=== PATIENT | female | born 1980 | race Caucasian/White ===

== ENCOUNTER 2016-03-21 07:33 | Emergency (ER) | payer OTHER ==
[~2016-03-21] VITALS: Ht 167.6 cm; Wt 68.9 kg
[~2016-03-21 07:33] MED LIST: AMOXIL 875 MG875 MG PO; CITALOPRAM HBR20 MG PO; CITALOPRAM HYDR40 MG PO; DIFLUCAN150 MG PO; FIORICET 325 MG1 TAB PO; FIORICET 50-301 EACH PO; MULTIVITAMIN1 TAB PO; NORCO 325 MG-51 TAB PO; PANTOPRAZOLE SO40 MG PO; PERCOCET 325 MG1 TA2 PO; PERCOCET 5-3251 EACH PO; PREDNISONE 20MG20 MG PO; PROTONIX 40MG T40 MG PO; REGLAN10 MG PO; TRAZODONE50 MG PO; ZOFRAN ODT4 M1 SL; ZOFRAN4 M1 SL; ZYRTEC10 MG PO
--- NOTE | 2016-03-21 07:48 | ED HEADACHE COMPLAINT ---
History of Present Illness General Chief Complaint: Headache Stated Complaint: HEADACHE, Source: patient, old records Exam Limitations: no limitations Vital Signs & Intake/Output Vital Signs & Intake/Output Vital Signs Date Time Temp Pulse Resp B/P Pulse O2 O2 Flow FiO2 Ox Delivery Rate 03/21 0911 72 15 124/76 99 Room Air Room Air 03/21 0806 Room Air Room Air 03/21 0737 97.0 96 20 118/80 97 Room Air Allergies Coded Allergies: NO KNOWN ALLERGIES (09/29/14) Reconcile Medications Acetaminophen/Butalbital/Caf (Fioricet 325 MG-50 MG-40 MG) 1 TAB TAB 1 TAB PO PRN MIGRAINES (Reported) do not exceed 6 tablet(s) in 24 hours Butalb/Acetaminophen/Caffeine (Fioricet 50-300-40 MG Capsule) 1 EACH CAPSULE 1 TAB PO Q4H PRN HEADACHE Cetirizine Hydrochloride (Zyrtec) 10 MG TAB 1 TAB PO PRN ALLERGIES (Reported) Citalopram Hydrobromide (Citalopram HBr) 20 MG TABLET 1 TAB PO DAILY MENTAL HEALTH (Reported) Ondansetron (Zofran Odt) 4 MG TAB.RAPDIS 1 TAB SL TID PRN nausea Oxycodone HCl/Acetaminophen (Percocet 5-325 MG Tablet) 1 EACH TABLET 1 TAB PO 4 TIMES/DAY PRN pain Pantoprazole Sodium (Protonix) 40 MG TAB 1 TAB PO PRN GI (Reported) Triage Note: PT C/O H/A X 2 DAYS. STATES SHE HAS HX OF MIGRAINES BUT IT FEELS MORE LIKE A SINUS H/A BECAUSE [employer] DIDN'T WORK AND IT USUALLY WORKS ON HER MIGRAINES. STATES SHE HAS BEEN ON ANTIBIOTICS AND STEROIDS FOR SINUSES Triage Nurses Notes Reviewed? yes : No Patient currently breastfeeds: No HPI: Patient presents with a migraine for the past 2 days. Has used her home medications without relief. Pain is in the left frontal region. Positive nausea vomiting. Positive photophobia. Pain is 10 out of 10. There is no radiation. There are no mitigating factors. There are no fevers or chills. Patient has a history of migraines. Patient was seen and evaluated by neurology and was instructed to go see ENT for possible sinus pauses for her migraines. Patient has an appointment on Friday with ENT. Pain is constant. Past History Travel History Traveled to [place] past 21 day No Medical History Any Pertinent Medical History? see below for history Neurological: migraine EENT: sinusitis Cardiovascular: NONE Respiratory: NONE Gastrointestinal: NONE Hepatic: NONE Renal: NONE Musculoskeletal: NONE Psychiatric: anxiety, depression Endocrine: NONE Blood Disorders: NONE Cancer(s): cervical cancer [employer]/Reproductive: NONE Tetanus Vaccine: 09/28/11 Surgical History Surgical History: TONSILLECTOMY LEAP PROCEDURE FOR CERVIC CANCER LEEP PROCEDURE Psychosocial History What is your primary language Malay Tobacco Use: Quit >30 days ago ETOH Use: denies use Illicit Drug Use: denies illicit drug use Family History Hx Contributory? No Review of Systems Review of Systems Constitutional: Reports: no symptoms. Eyes: Reports: no symptoms. Ears, Nose, Throat, Mouth: Reports: no symptoms. Respiratory: Reports: no symptoms. Cardiovascular: Reports: no symptoms. Gastrointestinal/Abdominal: Reports: no symptoms. Genitourinary: Reports: no symptoms. Musculoskeletal: Reports: no symptoms. Skin: Reports: no symptoms. Neurological/Psychological: Reports: see HPI, headache. Hematologic/Endocrine: Reports: no symptoms. Endocrine: Reports: no symptoms. Immunologic/Allergic: Reports: no symptoms. All Other Systems: Reviewed and Negative Physical Exam Physical Exam General Appearance: well developed/nourished, alert, awake, anxious, moderate distress Head: atraumatic, normal appearance Eyes: Bilateral: PERRL, EOMI. Ears, Nose, Throat: normal pharynx, normal ENT inspection Neck: normal inspection, supple, full range of motion Respiratory: normal breath sounds, chest non-tender, no respiratory distress, lungs clear Cardiovascular: regular rate/rhythm, normal peripheral pulses Gastrointestinal: normal bowel sounds, soft, non-tender, no organomegaly Back: normal inspection, normal range of motion Extremities: normal inspection, normal capillary refill, normal range of motion, no edema Psychiatric: awake, alert, oriented x 3 Cranial Nerves: normal hearing, normal speech, PERRL Coordination/Gait: normal gait Motor/Sensory: no motor/sensory deficits, motor deficit, sensory deficit Skin: intact, normal color, warm/dry Core Measures Severe Sepsis Present: No Septic Shock Present: No Progress Differential Diagnosis: cav sinus thromb, migraine BENAVIDES, sinusitis, tension BENAVIDES Plan of Care: Current Medications Sig/Víctor Start time Last Medication Dose Stop Time Status Admin Magnesium Sulfate 1 GM ONCE ONE 03/21 0845 AC (Mag Sulfate in D5) 03/21 1244 Dextrose/Water 100 ML (D5W) Comments: Slight relief from IV morphine, IV Benadryl and IV Zofran. The nausea has resolved. Departure Departure Disposition: HOME OR SELF CARE Condition: Stable Clinical Impression Primary Impression: Migraine Referrals: JUNIOR SERNA (PCP/Family) Additional Instructions: FOLLOW UP WITH ENT RETURN SYMPTOMS WORSEN OR FOR ANY CONCERNS Departure Forms: Customer Survey General Discharge Information
[2016-03-21 09:11] VITALS: BP 124/76
[2016-03-21] MEDS ORDERED: PERCOCET 5-3251 EACH PO (17:38)
[2016-03-21] MEDS ORDERED: ZOFRAN ODT4 M1 SL (17:38)
== END 2016-03-21 09:47 ==
LOC: ERH 07:33
DX: G43.909 Migraine, unspecified, not intractable, without status migrainosus (principal); R11.2 Nausea with vomiting, unspecified
CPT/HCPCS: 96374; 96375; 96376; J1200; J1885; J2405

== ENCOUNTER 2016-03-21 15:15 | Emergency (ER) | payer OTHER ==
[~2016-03-21] VITALS: Ht 167.6 cm; Wt 68.9 kg
[2016-03-21 17:26] VITALS: BP 129/58
--- NOTE | 2016-03-21 17:29 | ED HEADACHE COMPLAINT ---
History of Present Illness General Chief Complaint: Headache Stated Complaint: PT HAS A MIGRAINE Source: patient, old records Exam Limitations: no limitations Vital Signs & Intake/Output Vital Signs & Intake/Output Vital Signs Date Time Temp Pulse Resp B/P Pulse O2 O2 Flow FiO2 Ox Delivery Rate 03/21 1726 97.5 72 18 129/58 98 Room Air 03/21 1522 97.2 69 18 102/70 98 Room Air Allergies Coded Allergies: NO KNOWN ALLERGIES (09/29/14) Reconcile Medications Acetaminophen/Butalbital/Caf (Fioricet 325 MG-50 MG-40 MG) 1 TAB TAB 1 TAB PO PRN MIGRAINES (Reported) do not exceed 6 tablet(s) in 24 hours Butalb/Acetaminophen/Caffeine (Fioricet 50-300-40 MG Capsule) 1 EACH CAPSULE 1 TAB PO Q4H PRN HEADACHE Cetirizine Hydrochloride (Zyrtec) 10 MG TAB 1 TAB PO PRN ALLERGIES (Reported) Citalopram Hydrobromide (Citalopram HBr) 20 MG TABLET 1 TAB PO DAILY MENTAL HEALTH (Reported) Ondansetron (Zofran Odt) 4 MG TAB.RAPDIS 1 TAB SL TID PRN nausea Ondansetron (Zofran Odt) 4 MG TAB.RAPDIS 1 TAB SL TID PRN nausea Oxycodone HCl/Acetaminophen (Percocet 5-325 MG Tablet) 5 MG-325 MG TABLET 1 TAB PO BID PRN pain Oxycodone HCl/Acetaminophen (Percocet 5-325 MG Tablet) 1 EACH TABLET 1 TAB PO 4 TIMES/DAY PRN pain Pantoprazole Sodium (Protonix) 40 MG TAB 1 TAB PO PRN GI (Reported) Triage Note: 35 Y/O [id number] WAS EVAL'D AND TREATED IN ED THIS MORNING FOR SAME. STATES "I THINK IT'S A SINUS HEADACHE AND I NEED ANTIBIOTICS". PT DENIES CURRENT NAUSEA STATING THE ZOFRAN FROM EARLIER IS STILL WORKING. TOOK 1 TAB FIORCET APPROX 1400. Triage Nurses Notes Reviewed? yes Onset: Gradual Duration: day(s): (2), constant Timing: recent history Quality/Severity: mild, moderate, achy, constant Severity Numbers: 6 Head Injury Location: frontal (right) No Modifying Factors: none Associated Symptoms: denies : No Patient currently breastfeeds: No HPI: 35-year-old female read presents to emergency room after being seen here earlier today this morning for a left-sided frontal migraine headache for which she was given IV pain medicine and is feeling better. She states her nausea resolved hours states that as the day has progressed she is now developing a right-sided headache. She states when this is happened in the past after being given IV morphine she was diagnosed with a sinus infection. The patient just finished 2 rounds of azithromycin and Augmentin for sinus infections and denies any rhinorrhea and sinus pressure congestion fever chills sore throat coughing. She denies any nausea at this time. She was not sent home with any medication normally just takes fioricet for her migraines. There's been no recent fall or head trauma she has an appointment with ENT for next . (LEIGH SWAIN) Past History Travel History Traveled to [place] past 21 day No Medical History Any Pertinent Medical History? see below for history Neurological: migraine EENT: sinusitis Cardiovascular: NONE Respiratory: NONE Gastrointestinal: NONE Hepatic: NONE Renal: NONE Musculoskeletal: NONE Psychiatric: anxiety, depression Endocrine: NONE Blood Disorders: NONE Cancer(s): cervical cancer MEDICAL ORDERLY/Reproductive: NONE Tetanus Vaccine: 09/28/11 Surgical History Surgical History: TONSILLECTOMY LEAP PROCEDURE FOR CERVIC CANCER LEEP PROCEDURE Psychosocial History What is your primary language Urdu Tobacco Use: Quit >30 days ago Family History Hx Contributory? No (LEIGH SWAIN) Review of Systems Review of Systems Constitutional: Reports: see HPI. All Other Systems: Reviewed and Negative Comments Review of systems: See HPI, All other systems negative. Constitutional, no chills no fever, no malaise HEENT: No visual changes no sore throat no congestion, Cardiovascular: No chest pain , no palpitation Skin, no jaundice no rashes, no change in skin Respiratory: No dyspnea no cough no sputum GI: No nausea no vomiting, no diarrhea, : No dysuria Muscle skeletal: No joint pain, no joint swelling, no back pain, no neck pain, Neurologic: No numbness no confusion, headache Psych: No stress Heme/endocrine: No bruising no bleeding Immunology: No lymphadenopathy, (LEIGH SWAIN) Physical Exam Physical Exam General Appearance: well developed/nourished, no apparent distress, alert, awake , comfortable Cranial Nerves: normal hearing, normal speech, PERRL Comments: Well-developed well-nourished person in no acute distress Head/Face: Atraumatic, no maxillary/frontal sinus tenderness, no facial swelling Eyes: PERRL, EOMI, no conjunctival injection. No nystagmus Ear:External auditory canal and Tympanic membranes clear, no erythema, no FB. Nose: atraumatic.Normal inspection: No bleeding, Throat: Moist mucous membranes.Pharynx normal.No stridor/drooling or assymetry. No swelling or edema. Neck: Supple, no lymphadenopathy, FROM Back: Nontender, no CVA tenderness. Full range of motion Cardiovascular: Regular rate and rhythms no murmurs rubs Respiratory: No respiratory distress. Patient speaking in full complete sentences. Breath sounds clear to auscultation bilaterally: NO W/R/R Extremity: No edema, full range of motion of extremities, normal and equal pulses bilaterally, 5 out of 5 strength noted to bilateral upper and lower extremities Neuro: Alert oriented x3, motor sensory normal, cranial nerves II through XII grossly intact. There were no obvious focal neurologic abnormalities.neg brudinskis Skin: No appreciable rash on exposed skin, skin is warm and dry. Psych: Mood and affect is normal, memory and judgment is normal. Core Measures Severe Sepsis Present: No Septic Shock Present: No (LEIGH SWAIN) Progress Differential Diagnosis: intracranial Hem., meningitis, migraine BENAVIDES, musculoskeletal pain, tension BENAVIDES, temporal arteritis Plan of Care: Patient clinically appears well laughing conversing appears in no apparent distress. Discussed with her need for close follow-up with her primary care physician prescription for Percocet and Zofran were provided advised return if symptoms worsen patient was given the option of IV pain medication and she stated that she wanted "whatever got me out of here quicker" she clinically appears well and do not believe the patient requires any imaging studies or further workup at this time which she is in agreement with a all of her questions and she feels comfortable with this plan (LEIGH SWAIN) Departure Departure Time of Disposition: 1735 Disposition: HOME OR SELF CARE Condition: Stable Clinical Impression Primary Impression: Migraine Referrals: JUNIOR SERNA (PCP/Family) Additional Instructions: Follow-up with your primary care physician as well as her nose and throat physician as scheduled next week. Percocet and Zofran as directed. Use caution as the Percocet is a narcotic and highly addictive- no driving or drinking alcohol while taking These prescriptions were sent to the [facility] Departure Forms: Customer Survey General Discharge Information Prescriptions: Current Visit Scripts Oxycodone HCl/Acetaminophen (Percocet 5-325 MG Tablet) 1 TAB PO BID PRN pain #10 TAB Ondansetron (Zofran Odt) 1 TAB SL TID PRN nausea #10 TAB (LEIGH SWAIN) PA/DEPUTY OF COUNTER INTELLIGENCE Co-Sign Statement Statement: ED Attending supervision documentation- [] I saw and evaluated the patient. I have also reviewed all the pertinent lab results and diagnostic results. I agree with the findings and the plan of care as documented in the PA's/DEPUTY OF COUNTER INTELLIGENCE's documentation. x I have reviewed the ED Record and agree with the PA's/DEPUTY OF COUNTER INTELLIGENCE's documentation. [] Additions or exceptions (if any) to the PAs/DEPUTY OF COUNTER INTELLIGENCE's note and plan are summarized below: [] (ROSIO MONTERO,SANTANA)
[2016-03-21] MEDS ORDERED: ZOFRAN ODT4 M1 SL (17:38)
[2016-03-21] MEDS ORDERED: PERCOCET 5-3251 EACH PO (17:38)
== END 2016-03-21 18:06 ==
LOC: ERH 15:15
DX: G43.909 Migraine, unspecified, not intractable, without status migrainosus (principal)

== ENCOUNTER → 2017-10-30 | Day surgery (SDC) | payer OTHER ==
[~2017-10-30] VITALS: Ht 170.2 cm; Wt 61.2 kg
[2017-10-30 11:28] LABS: ABSOLUTE BASOPHIL COUNT 0 /CUMM (0.0-0.2); ABSOLUTE EOSINOPHIL COUNT 0.1 /CUMM (0.0-0.7); ABSOLUTE GRANULOCYTE CT 3.4 /CUMM (1.4-6.5); ABSOLUTE LYMPH COUNT 2.5 /CUMM (1.2-3.4); ABSOLUTE MONOCYTE COUNT 0.6 /CUMM (0.10-0.60); BASOPHIL % 0.6 % (0.0-2.0); EOSINOPHIL % 2.1 % (0-5); GRANULOCYTE % 51.2 % (42.2-75.2); HEMATOCRIT 43.8 % (37-47); MEAN CORPUSCULAR HGB 30.6 PG (27.0-31.0); MEAN CORPUSCULAR HGB CONC 33.6 G/DL (33.0-37.0); MEAN CORPUSCULAR VOLUME 91.1 FL (81.0-99.0); MEAN PLATELET VOLUME 8.2 FL (7.4-10.4); PLATELET COUNT 278 /CUMM (130-400); RBC DISTRIBUTION WIDTH 12.9 % (11.5-14.5); RED BLOOD CELL CT 4.81 /CUMM (4.20-5.40); WHITE BLOOD CELL COUNT 6.7 /CUMM (4.8-10.8)
[2017-10-30 11:42] LABS: PTT 27 SEC (25-37)
--- NOTE | 2017-11-05 11:16 | Operative Report ---
See Addendum Operative/Inv Procedure Report Surgery Date: 10/31/17 Name of Procedure: Examination under anesthesia cold-like: Endocervical curettage Pre-Operative Diagnosis: KEVYN-2 Post-Operative Diagnosis: Same Estimated Blood Loss: less than 50ml Surgeon/Operations Research Director: Teri Stallings MD Anesthesia: moderate sedation Operative/Procedure Note Note: Seasonal patient was taken the operating room after adequate induction of anesthesia patient placed in dorsolithotomy position the vagina from dorsal fashion I at this point Marcaine was injected 3 and 9:00 on cervix respectively stay suture [id number] was placed at 3 and 9:00 the cervix was injected with Pitressin for hemostasis also positive cervix service of the cervix patient aren't that well it was clear the area that was consistent with the colposcopy KEVYN-2 with a an 11 blade a cervical cone was removed and sent to pathology endocervical curettage performed after removal of the Kumari I this point running locking suture was placed around the bases cervix on Gagan was placed and cervical did hemostasis was apparent on since removed from the vagina I patient was returned spine position awakened from anesthesia and transferred recovery room awake and alert counts correct
== END ==
LOC: STS 01:42
PROVIDERS: Specialist
DX: N87.1 Moderate cervical dysplasia (principal); R00.0 Tachycardia, unspecified; K58.9 Irritable bowel syndrome, unspecified
CPT/HCPCS: 36415; 81001; 81025; 93005; 93010; J0131; J2250